=== PATIENT | female | born 1965 | race Caucasian/White ===

== ENCOUNTER 2018-03-15 14:03 | Outpatient (CLI) | payer BC ==
--- NOTE | 2018-03-15 15:56 | BD ---
DEXA BONE DENSITY EXAM: HISTORY: An 52-year-old postmenopausal female for screening. COMPARISON: 05/13/2016 FINDINGS: LUMBAR SPINE BMD (g/cm2) T-SCORE L1 0.858 -1.2 L2 0.931 -0.9 L3 0.974 -1.0 L4 0.933 -1.2 TOTAL L1-L4 0.925 -1.1 LEFT FEMORAL NECK 0.633 -1.9 TOTAL PROXIMAL LEFT FEMUR: 0.850 -0.8 IMPRESSION: Osteopenia. This patient has a 10 year WHO fracture risk for a major osteoporotic fracture of 13% and for a hip f racture of 0.8%. POS: [facility]
== END 2018-03-15 14:04 | disposition home or self-care (01) ==
LOC: BICMAMMO 14:03
PROVIDERS: ATTEND Obstetrics & Gynecology
DX: Z12.31 Encounter for screening mammogram for malignant neoplasm of breast (principal); M81.0 Age-related osteoporosis without current pathological fracture; M85.89 Other specified disorders of bone density and structure, multiple sites; Z79.890 Hormone replacement therapy; Z85.850 Personal history of malignant neoplasm of thyroid
CPT/HCPCS: 77063; 77067; 77080